=== PATIENT | male | born 1980 | race African-American/Black ===

== ENCOUNTER 2021-02-01 14:20 | Emergency (ER) | payer MEDICAID ==
[~2021-02-01] VITALS: Ht 172.7 cm; Wt 77.0 kg
[2021-02-01 14:57] VITALS: BP 112/70
== END 2021-02-01 14:58 | disposition home or self-care (01) ==
LOC: ER 14:24
DX: Z48.00 Encounter for change or removal of nonsurgical wound dressing (principal); J45.909 Unspecified asthma, uncomplicated; Z98.890 Other specified postprocedural states
CPT/HCPCS: 99281

== ENCOUNTER 2021-04-26 01:13 | Emergency (ER) | payer MEDICAID ==
[~2021-04-26] VITALS: Ht 172.7 cm; Wt 77.0 kg
[2021-04-26 01:42] VITALS: BP 129/78
== END 2021-04-26 02:23 | disposition home or self-care (01) ==
LOC: ER 01:13
DX: Z48.00 Encounter for change or removal of nonsurgical wound dressing (principal); J45.909 Unspecified asthma, uncomplicated
CPT/HCPCS: 99281

== ENCOUNTER 2021-12-05 19:14 | Emergency (ER) | payer MEDICAID | END 2021-12-05 22:31 | disposition left against medical advice (07) | LOC: ER 19:14 | DX: Z53.21 Procedure and treatment not carried out due to patient leaving prior to being seen by health care provider (principal) ==

== ENCOUNTER 2021-12-09 03:06 | Emergency (ER) | payer MEDICAID ==
[~2021-12-09] VITALS: Ht 180.3 cm; Wt 80.0 kg
[2021-12-09 03:20] VITALS: BP 118/76
== END 2021-12-09 08:40 | disposition left against medical advice (07) ==
LOC: ER 03:24
DX: Z53.21 Procedure and treatment not carried out due to patient leaving prior to being seen by health care provider (principal)